=== PATIENT | male | born 1955 | race Caucasian/White ===

== ENCOUNTER → 2017-04-21 | Day surgery (SDC) | payer OTHER ==
[2017-04-13 08:48] VITALS: BMI 32.0
[~2017-04-21] VITALS: Ht 180.3 cm; Wt 104.5 kg
[~2017-04-21] MED LIST: ATROPINE SULFATE 0.1 MG/ML 5ML SYR IV PRN; DEXAMETHASONE SOD INJ 4 MG/ML VIAL ONE; EpHEDrine SULFATE INJ 50 MG/ML AMP IV PRN; FENTANYL CITRATE INJ 50 MCG/1 ML 2 ML VIAL ONE; GLYCOPYRROLATE INJ 0.2 MG/ML VIAL ONE; LIDOCAINE HCL 2% 2 ML VIAL (20MG/ML) ONE; LISI40TA PO; MIDAZOLAM HCL 1 MG/ML 2ML VIAL ONE; NEOSTIGMINE METHYLSULFATE 5 MG/5 ML SYR ONE; ONDANSETRON INJ 2 MG/ML 2 ML VIAL ONE; PROPOFOL IV EMULSION 10 MG/ML 20 ML VIAL IV ONE; SODIUM CHLORIDE 0.9% 500ML 500 ML IV ONE
[2017-04-21 06:42] VITALS: BP 175/85; PULSE 67; TEMP 36.8; O2SAT 96; Ht 180.3 cm; Wt 104.5 kg
--- NOTE | 2017-04-21 08:08 | Endo History and Physical ---
History & Physical Date of Service: Apr 21, 2017. Chief Complaint: colon polyp Referring Physician: History of Present Illness colon polyp for resection Past Surgical History Hx Cardiac Surgery: No Hx Abdominal Surgery: No Hx Post-Op Nausea and Vomiting: No Hx Cancer Surgery: No Hx Thoracic Surgery: No Hx Orthopedic: Yes (RIGHT FINGER ORIF AND HARDWARE REMOVAL) Hx Urinary Tract Surgery: No Social History Smoking Status: Never Smoker Hx Substance Use: No Hx Alcohol Use: Yes (6 to 7 beers a week) Allergies Coded Allergies: No Known Allergies (Unverified , 04/13/17) Current Medications Reported Home Medications Medications Dose Route/Sig Max Daily Dose Days Date Category Zestril (Lisinopril) 40 Mg Tab 20 Mg PO QAM 04/13/17 Reported Vital Signs Weight (Kilograms): 104.55 Height (Feet): 5 Height (Inches): 11 Date Time Temp Pulse Resp B/P (MAP) Pulse Ox O2 Delivery O2 Flow Rate FiO2 04/21/17 06:42 36.8 67 20 175/85 (115) 96 Room Air Physical Exam General Appearance: WD/WN, no apparent distress Respiratory/Chest: Auscultation: breath sounds normal Cardiovascular: Heart Auscultation: RRR Abdomen: Bowel Sounds: normal Inspection & Palpation: soft, non-distended, no tenderness, guarding & rebound Assessment and Plan colonoscopy with polypectomy
[2017-04-21 09:05] VITALS: BP 115/67; PULSE 75; TEMP 36.4; O2SAT 94
--- NOTE | 2017-04-21 09:19 | GI REPORT ---
Procedure Date: 04/21/2017 8:05 AM Procedure: Colonoscopy Indications: Therapeutic procedure for colon polyps Medicines: Propofol per Anesthesia Complications: No immediate complications. Estimated blood loss: Minimal. Estimated Blood Loss: Estimated blood loss was minimal. Procedure: Pre-Anesthesia Assessment: - Prior to the procedure, a History and Physical was performed, and patient medications and allergies were reviewed. The patient's tolerance of previous anesthesia was also reviewed. The risks and benefits of the procedure and the sedation options and risks were discussed with the patient. All questions were answered, and informed consent was obtained. Prior Anticoagulants: The patient has taken no previous anticoagulant or antiplatelet agents. ASA Grade Assessment: III - A patient with severe systemic disease. After reviewing the risks and benefits, the patient was deemed in satisfactory condition to undergo the procedure. After I obtained informed consent, the scope was passed under direct vision. Throughout the procedure, the patient's blood pressure, pulse, and oxygen saturations were monitored continuously. The Scope was introduced through the anus and advanced to the cecum, identified by the appendiceal orifice, ileocecal valve and palpation. The colonoscopy was unusually difficult due to a redundant colon and a tortuous colon. Successful completion of the procedure was aided by changing the patient to a supine position and using manual pressure. The patient tolerated the procedure well. The quality of the bowel preparation was good. Findings: The perianal and digital rectal examinations were normal. Pertinent negatives include normal sphincter tone, no palpable rectal lesions and no anal lesion or abnormality was detected. A 12 mm polyp was found in the cecum. The polyp was semi-pedunculated. The polyp was removed with a hot snare. Resection and retrieval were complete. Estimated blood loss: none. To prevent bleeding after the polypectomy, two hemostatic clips were successfully placed (MR conditional). There was no bleeding during, or at the end, of the procedure. A 2 mm polyp was found in the ileocecal valve. The polyp was sessile. The polyp was removed with a cold biopsy forceps. Resection and retrieval were complete. Estimated blood loss was minimal. Verification of patient identification for the specimen was done by the physician and helpdesk technician using the patient's name and medical record number. The exam was otherwise without abnormality. The retroflexed view of the distal rectum and anal verge was normal and showed no anal or rectal abnormalities. Impression: - One 12 mm polyp in the cecum, removed with a hot snare. Resected and retrieved. Clips (MR conditional) were placed. - One 2 mm polyp at the ileocecal valve, removed with a cold biopsy forceps. Resected and retrieved. - The examination was otherwise normal. - The distal rectum and anal verge are normal on retroflexion view. Recommendation: - Discharge patient to home (ambulatory). - Resume regular diet. - Continue present medications. - Await pathology results. - Repeat colonoscopy for surveillance based on pathology results. - Return to referring physician as previously scheduled. MD Dustin Tripathi MD 04/21/2017 9:18:55 AM This report has been signed electronically. Note Initiated On: 04/21/2017 8:05 AM I attest to the content of the Intraoperative Record and orders documented therein, exceptions below
[2017-04-21 09:35] VITALS: BP 130/78; PULSE 59; O2SAT 96
--- NOTE | 2017-04-21 09:59 | Discharge Instructions ---
Endoscopy Patient Instructions Date / Procedure(s) Performed Apr 21, 2017. Colonoscopy Allergy Information Coded Allergies: No Known Allergies (Unverified , 04/13/17) Discharge Date / Findings Apr 21, 2017. colon polyp removed Medication Instructions Restart Stopped Medication(s): Reported Home Medications Medications Dose Route/Sig Max Daily Dose Days Date Category Zestril (Lisinopril) 40 Mg Tab 20 Mg PO QAM 04/13/17 Reported Reported Home Medications Medications Dose Route/Sig Max Daily Dose Days Date Category Zestril (Lisinopril) 40 Mg Tab 20 Mg PO QAM 04/13/17 Reported Provider Instructions Activity Restrictions - No exercising or heavy lifting for 24 hours. - Do not drink alcohol the day of the procedure. - Do not drive a car or operate machinery until the day after the procedure. - Do not make any important decisions or sign important papers in 24 hours after the procedure. Following Day: - Return to full activity which may include returning to work/school. Diet Start your diet with liquids and light foods (jello, soup, juice, toast). Then eat your usual diet if not nauseated. Treatment For Common After Affects For mild abdominal pain, bloating, or excessive gas: - Rest - Eat lightly - Lie on right side Follow-Up Information Follow-up with as scheduled Anesthesia Information What You Should Know You have had a procedure that required some medicine to reduce anxiety and discomfort. This treatment is called moderate sedation. After receiving the treatment, you may be sleepy, but you will be able to breathe on your own. The effects of the treatment may last for several hours. Follow these instructions along with Activity/Diet recommendations noted above: * Do NOT do anything where dizziness or clumsiness would be dangerous. * Rest quietly at home today, then you can be up and about tomorrow. * Have a responsible person stay with you the rest of today. * You may have had an I.V. today. If so, you may take the dressing off later today. Recommendations Call your doctor if: * Trouble breathing * Continuous vomiting for more than 24 hours * Temperature above 101 degrees * Severe abdominal pain or bloating * Pain not relieved by pain medicine ordered * There is increased drainage or redness from any incision * A large amount of rectal bleeding greater than 2-3 tablespoons. (If you had a polyp/s removed or have hemorrhoids, a small amount of blood - from the rectum is to be expected.) * You have any unanswered questions or concerns. IN THE EVENT OF A SERIOUS EMERGENCY, GO TO THE NEAREST EMERGENCY ROOM Your discharge instructions were prepared by provider Dustin Rodriges. Patient Instructions Signature Page Bart Holman Patient (or Guardian) Signature/Date: I have read and understand the instructions given to me by my caregivers. Caregiver/RN/Doctor Signature/Date: The above-named patient and/or guardian has received patient instructions on this date. + Original Patient Signature Page (only) stays with chart. Please make copy for patient.
--- NOTE | 2017-04-21 11:00 | Anesthesiology Progress Note ---
Anesthesia Post Op Note Date & Time Apr 21, 2017 at 10:59 Vital Signs Pain Intensity: 0 Vital Signs Past 12 Hours Date Time Temp Pulse Resp B/P (MAP) Pulse Ox O2 Delivery O2 Flow Rate FiO2 04/21/17 09:35 59 18 130/78 96 Room Air 04/21/17 09:05 36.4 75 18 115/67 94 Room Air 04/21/17 06:42 36.8 67 20 175/85 (115) 96 Room Air Notes Mental Status: alert / awake / arousable, participated in evaluation Pt Amnestic to Procedure: Yes Nausea / Vomiting: adequately controlled Pain: adequately controlled Airway Patency, RR, SpO2: stable & adequate BP & HR: stable & adequate Hydration State: stable & adequate Anesthetic Complications: no major complications apparent
== END | disposition home or self-care (01) ==
LOC: C.ACU 06:14
PROVIDERS: ATTEND Internal Medicine Gastroenterology
DX: D12.0 Benign neoplasm of cecum (principal); I10 Essential (primary) hypertension; M19.90 Unspecified osteoarthritis, unspecified site; E66.9 Obesity, unspecified; Z68.34 Body mass index [BMI] 34.0-34.9, adult; Z79.899 Other long term (current) drug therapy

== ENCOUNTER 2025-03-03 07:10 | Observation (INO) ==
--- NOTE | 2025-01-30 10:32 | PAT Medication Instructions ---
Medication Instructions Date of Service January 30, 2025 Home Medications Medication Instructions Recorded Auto Titrating CPAP #1 ea 05/15/19 propylene glycol 0.6 % eye drops ([place] Tears) 1 drp ophthalmic (eye) TID PRN clotrimazole-betamethasone 1 %-0.05 % topical cream 1 applic topical .once a day PRN acetaminophen 500 mg tablet 1,000 mg PO Q6H PRN Pain hydrochlorothiazide 12.5 mg tablet 12.5 mg PO QAM lisinopril 40 mg tablet 40 mg PO QAM meloxicam 15 mg tablet 15 mg PO QAM pain ASK your surgeon for instructions meloxicam 15 mg tablet 15 mg PO QAM pain STOP taking 24 hours before surgery clotrimazole-betamethasone 1 %-0.05 % topical cream 1 applic topical .once a day PRN DO NOT take the morning of surgery hydrochlorothiazide 12.5 mg tablet 12.5 mg PO QAM lisinopril 40 mg tablet 40 mg PO QAM Take morning of surgery With a small sip of water, OTHERWISE NOTHING TO EAT OR DRINK AFTER MIDNIGHT: propylene glycol 0.6 % eye drops ([place] Tears) 1 drp ophthalmic (eye) TID PRN (if needed) acetaminophen 500 mg tablet 1,000 mg PO Q6H PRN Pain (if needed) Take evening before surgery propylene glycol 0.6 % eye drops ([place] Tears) 1 drp ophthalmic (eye) TID PRN (if needed) acetaminophen 500 mg tablet 1,000 mg PO Q6H PRN Pain (if needed) Other Notes If you have any questions please call us at [phone] or [phone] or [phone] or [phone]
--- NOTE | 2025-02-10 09:52 | Anesthesiology Consultation ---
Date of Service February 10, 2025 Assessment & Plan (1) Encounter for pre-operative examination: Plan - Outpatient joint assessment: Patient is currently scheduled for inpatient pathway. If re-evaluated and patient/surgeon requests outpatient pathway, patient is acceptable candidate for outpatient joint program from anesthesia standpoint pending surgeon's office assessment of pt motivation/support/completion of same day joint program preop requirements. Chart Review Chart Review: Acceptable Risk for Surgery and Patient seen in Pre Admission Testing Teaching & Discussion Pre-Anesthesia Teaching/Discussion Notes: Instructed NPO after midnight before surgery, except medications with 15 cc of water. Medication instructions provided according to the PAT guidelines. History Surgery Operation Date: 03/03/25 12:00 Proposed Procedures p Robotic Assisted Left Total Knee Arthroplasty - Thiago Masters, Height/Weight Height: 5 ft 10 in Weight: 103.7 kg Allergies Allergy/AdvReac Type Severity Reaction Status Date / Time No Known Allergies Allergy Verified 01/30/25 08:20 Medications Home Medications Medication Instructions Recorded Confirmed Last Taken Auto Titrating CPAP #1 ea 05/15/19 12/23/24 Unknown propylene glycol 0.6 % eye drops 1 drp ophthalmic (eye) TID PRN . 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 Exercise / Class Metabolic Activity II 4-5 Yardwork/Stairs/Walk up hill (denies chest discomfort or shortness of breath with one flight of stairs) Past Family History Family History Father Coronary heart disease s/p CABG. living in his 80s Heart disease Hypertension Sister Anxiety Hypertension Mother TIA (transient ischemic attack) Chronic GERD Hypertension Brother Hypertension Denies family history of Ovarian cancer Prostate cancer Diabetes Myocardial infarction Breast cancer Lung cancer Colorectal cancer Lung disease Cancer Stroke Past Surgical History Surgical History H/O colonoscopy (2022) H/O vasectomy (1981) H/O wisdom tooth extraction History of hand surgery (1981) broke ring finger on right hand Hx of right cataract extraction (2022) Past Anesthesia History No Hx of Anesthesia Complications and No Family Hx of Anesthesia Complications History of PONV No Hx of PONV and No Hx of Motion Sickness Social History Smoking Status: Never smoker tobacco type: smokeless tobacco Do You Dip or Chew Tobacco: Yes (advised) Hx Alcohol Use: Yes Alcohol type: beer alcohol intake frequency: a few times a week Hx Substance Use: No substance use type: does not use Review of Systems Patient denies chest pain, shortness of breath, dyspnea on exertion, reflux, fever, chills, cough, wheezing, or palpitations. Physical Exam Vital Signs Vitals BP 147/91 P 79 TEMP 98.5 SP02 97% on RA RESP 18 Physical Patient resting comfortably in chair in no acute distress, alert and oriented, responding appropriately throughout visit Full cervical extension range of motion without pain TMD 3.5 finger breadths Mallampati Score 2 Dentition: several crowns, denies chipped or loose teeth, caps, implants or bridges Lungs: normal respiratory effort. Good air movement, clear throughout to aus cultation, no adventitious breath sounds Cardiac: regular rate and rhythm, no murmurs noted Carotid arteries: negative bruit bilat Lab Results Anesthesia Preop Results Results Anesthesia Widget: WBC 6.07 K/ul (4.8-10.8) 02/10/25 Hgb 14.3 g/dl (14.0-18.0) 02/10/25 Hct 42.4 % (42.0-52.0) 02/10/25 Plt 232 K/uL (130-400) 02/10/25 Na 137 mmol/L (136-145) 02/10/25 K 4.5 mmol/L (3.5-5.1) 02/10/25 Cl 103 mmol/L (98-107) 02/10/25 CO2 26 mmol/L (21-32) 02/10/25 BUN 28 mg/dl (6-23) H 02/10/25 Creat 0.88 mg/dl (0.6-1.4) 02/10/25 Glucose Level 95 mg/dl (70-99(Fasting)) 02/10/25 PT 10.5 Seconds (9.0-12.0) 02/10/25 PTT 25 Seconds (21-31) 02/10/25 INR 1.0 (0.9-1.1) 02/10/25 Blood Type A Positive 02/10/25 Antibody Screen NEGATIVE 02/10/25 Testing Electrocardiogram Date: 02/10/25 NSR, rate 69 bpm Chest X-Ray Date: 02/10/25 No acute findings. Stress Test Date: 12/06/23 MPHR 91% Negative exercise stress echo and ECG for ischemia EF 50-55% Mild cLVH Borderline dilated LA Mildly dilated RV and RA Mild aortic sclerosis, tri-leaflet
--- NOTE | 2025-02-27 12:21 | History & Physical Report ---
Date of Service February 27, 2025 Assessment & Plan (1) Left knee DJD: We will proceed with a left total knee arthroplasty. Postoperatively, he will be started on aspirin for DVT prophylaxis and kept overnight in the hospital for postop medical comanagement. He plans to use energy physical therapy at [facility]. History of Present Illness Chief Complaint: Osteoarthritis left knee. Primary Care Provider: IVELISSE Bui Bart is pleasant 69-year-old male who has been dealing with chronic increasing left knee pain. He has been treated by another provider. Initial x-rays do not look too bad. He has an MRI of his knee which shows more advanced medial compartmental arthritis. After failing conservative treatment, he has elected proceed with a left total knee arthroplasty. Allergies Allergy/AdvReac Type Severity Reaction Status Date / Time No Known Allergies Allergy Verified 02/17/25 08:12 Home Medications Medication Instructions Recorded Confirmed Type Auto Titrating CPAP #1 ea 05/15/19 02/17/25 Rx propylene glycol 0.6 % eye drops 1 drp ophthalmic (eye) TID PRN . 10/15/24 02/17/25 History ([place] Me[place] Tears) clotrimazole-betamethasone 1 1 applic topical .once a day PRN , 12/23/2402/17 History %-0.05 % topical cream acetaminophen 500 mg tablet 1,000 mg PO Q6H PRN Pain 01/30/25 02/17/25 History lisinopril 40 mg tablet 40 mg PO QAM 01/30/25 02/17/25 History meloxicam 15 mg tablet 15 mg PO QAM pain 01/30/25 02/17/25 History hydrochlorothiazide 12.5 mg tablet 12.5 mg PO QAM #90 tabs 02/13/25 02/17/25 Rx Past Med/Surg History Problem List Encounter for pre-operative examination Left knee DJD Tear of medial meniscus of left knee Effusion, left knee Meibomian gland dysfunction Dry eye Hyperlipidemia Sleep apnea CPAP Obesity (BMI 30-39.9) Smokeless tobacco use (Acute) Prediabetes (Chronic) states recent testing was WNL Nummular eczematous dermatitis Hypertension (Chronic) Medical History Tear of medial meniscus of left knee Meibomian gland dysfunction History of prediabetes HLD (hyperlipidemia) Sleep apnea CPAP-compliant Dry eye Left knee DJD Hypertension controlled, stable per pt 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 living in his 80s Heart disease Hypertension Sister Anxiety Hypertension Mother TIA (transient ischemic attack) Chronic GERD Hypertension Brother Hypertension Denies family history of Ovarian cancer Prostate cancer Diabetes Myocardial infarction Breast cancer Lung cancer Colorectal cancer Lung disease Cancer Stroke Social History Smoking Status: Never smoker Tobacco Type: Smokeless Tobacco (Dip or Chew) Age Started Using Tobacco: 10; Second Hand Exposure: No; Do You Dip or Chew Tobacco: Yes (advised); Tobacco Cessation Education Requested by Patient: No Hx Alcohol Use: Yes Alcohol type: beer Alcohol Intake Frequency: 2-3 x/Week Hx Substance Use: No Preferred Language: [place] Communication Ability: Effective Visual Impairment: Limited Hearing Ability: Normal Quantitative Researcher Required: No Beliefs That Will Affect Care: None marital status: Current Living Situation: Spouse current occupational status: retired current occupation: electronic security specialist How many Children do You have: 2 Other Information That Helps Us Care for You: No other: 1 son, 1 daughter, [employer], Retired Feels Safe at Home: Yes Safety Concerns: Feels Safe At This Time Childhood Exposure to Second-Hand Smoke: No caffeine: Yes Dental Care, Regularly: No Physical Activity Frequency: Does not Exercise Seatbelt Use: always Sunscreen Use: No Assistive Devices: CPAP and Glasses Review of Systems All systems reviewed & are unremarkable except as noted in HPI & below. Physical Exam On physical exam of the left knee, he has pain of the distal medial femoral condyle and over the medial joint line. He is good range of motion. No effusion.. Constitutional WD/WN, vitals as above Eyes PERRL, conjunctivae normal, anicteric sclerae ENMT external ear and nose normal, oropharynx normal Neck trachea midline, no thyromegaly Respiratory normal respiratory effort Cardiovascular RRR, no murmur, no edema Gastrointestinal (Abdomen) normal bowel sounds, soft, nontender, no hepatosplenomegaly Psychiatric A+Ox3, euthymic affect Results & Data Results & Data Laboratory Results . Diagnostic Findings . PG Care Time/CCT Total # of Minutes Spent Total Time Spent with Patient: Total time spent is greater than 50% in coordination of care (as documented) at patient's floor/unit and/or counseling patient: Coding Level of Care Code None Diagnoses Left knee DJD M17.12
[~2025-03-03 07:10] MED LIST changes: -ATROPINE SULFATE 0.1 MG/ML 5ML SYR IV PRN; +BUPIVACAINE 0.25% PF 30 ML VIAL ONE; +BUPIVACAINE 0.5 % 5 MG/1 ML PF 10ML VIAL ONE; +EPINEPHrine INJ 1 MG/ML AMP ONE; -EpHEDrine SULFATE INJ 50 MG/ML AMP IV PRN; -FENTANYL CITRATE INJ 50 MCG/1 ML 2 ML VIAL ONE; -GLYCOPYRROLATE INJ 0.2 MG/ML VIAL ONE; -LIDOCAINE HCL 2% 2 ML VIAL (20MG/ML) ONE; -LISI40TA PO; -MIDAZOLAM HCL 1 MG/ML 2ML VIAL ONE; -NEOSTIGMINE METHYLSULFATE 5 MG/5 ML SYR ONE; -ONDANSETRON INJ 2 MG/ML 2 ML VIAL ONE; -PROPOFOL IV EMULSION 10 MG/ML 20 ML VIAL IV ONE; -SODIUM CHLORIDE 0.9% 500ML 500 ML IV ONE
[2025-03-03] MEDS: ACETAMINOPHEN 500 MG TAB PO SCH ×2 (07:23→14:52)
[2025-03-03] MEDS: dexAMETHasone**PF** 10 MG/ML VIAL IV SCH (07:24)
[2025-03-03] MEDS: FAMOTIDINE 20 MG TAB PO SCH (07:24)
[2025-03-03] MEDS: LR 60ML/HR IV SCH (07:24)
[2025-03-03] MEDS: GABAPENTIN 300 MG CAP PO SCH (07:24)
[2025-03-03] MEDS: LR 500ML BOLUS, THEN 15ML/HR IV SCH (07:45)
[2025-03-03] MEDS ORDERED: ONDANSETRON INJ 2 MG/ML 2 ML VIAL IV PRN ×2 (07:49→11:33)
[2025-03-03] MEDS ORDERED: ATROPINE SULFATE 0.1 MG/ML 10ML SYR IV PRN (07:49)
[2025-03-03] MEDS ORDERED: PROMETHAZINE HCL 6.25 MG in SODIUM CHLORIDE 0.9% 50 ML IV PRN (07:49)
--- NOTE | 2025-03-03 08:00 | History & Physical Bridge Note ---
Date of Service March 03, 2025 History & Physical Bridge Note I have examined the patient, reviewed the History & Physical and in the interval since the performance of the History & Physical I have noted the following changes of clinical significance: no changes noted
[2025-03-03] MEDS ORDERED: ONDANSETRON INJ 2 MG/ML 2 ML VIAL ONE (08:10)
[2025-03-03] MEDS ORDERED: LIDOCAINE 2% 2 ML VIAL/AMP(20MG/ML) INFIL ONE (08:10)
[2025-03-03] MEDS ORDERED: DEXAMETHASONE SOD INJ 4 MG/ML VIAL ONE (08:10)
[2025-03-03] MEDS ORDERED: PROPOFOL IV EMULSION 10 MG/ML 100 ML VIAL IV ONE (08:10)
[2025-03-03] MEDS ORDERED: PROPOFOL IV EMULSION 10 MG/ML 20 ML VIAL IV ONE (08:10)
[2025-03-03] MEDS ORDERED: MIDAZOLAM HCL 1 MG/ML 2ML VIAL ONE ×2 (08:10)
[2025-03-03] MEDS: TRANEXAMIC ACID 1,000 MG **IV Pre-op IV SCH (08:32)
[2025-03-03] MEDS: ROPIV 0.5% 246mg, Ketorolac 30mg, EPINEPHrine 0.5mg in NSS INFIL SCH (09:22)
[2025-03-03] MEDS: ORTHO JOINT ANESTHETIC ONE (09:23)
--- NOTE | 2025-03-03 09:57 | Operative Report ---
PG Post Operative Report Pre & Post Diagnosis Operation Date: 03/03/25 09:00 Pre-Op Diagnosis: Left Knee Degenerative Joint Disease Post-Op Diagnosis: Left Knee Degenerative Joint Disease I identified the patient and participated in the time-out.: Yes Procedure Operation Date: 03/03/25 09:00 Actual Procedures p Robotic Assisted Left Total Knee Arthroplasty(Left) - Thiago Masters DO Surgeon Thiago Masters DO Wringer Machine Operator Serafin Shook PA-C Estimated Blood Loss 30 Findings Consistent with Post-Op Diagnosis Specimens Left femoral and tibial bone Description of Procedure Implants used: I used a [employer] total knee arthroplasty system with a size 11 PS standard femur, F tibia, and a size 10 CPS polyethylene bearing. All components were press-fit into place. Bart arrived [facility] for the above procedure. He was seen in the preoperative holding area and the operative extremity was identified and signed. he was given a preoperative antibiotic, TXA, a spinal anesthetic and an adductor nerve block. He was taken back to the operating room and laid on the table in supine position. He was given basic sedation. The operative knee was then prepped and draped in sterile fashion. A timeout was done, and the patient and the operative extremity was properly identified. A midline incision was made directly over the patella. Dissection was taken down to the extensor mechanism. A medial parapatellar arthrotomy was used. The medial retinaculum was released and the fat pad was mostly excised. The knee was flexed and the ACL, PCL, and meniscus were removed. The alignment of the knee replacement was assisted with a [employer] robotic knee. The femoral array was pinned in the distal femur and the tibial array was pinned using a percutaneous technique in the upper shaft of the tibia. The robot was appropriately calibrated and the structure of the knee was mapped out. The components were then manipulated on the screen to account for any malalignment and to assist in gap balancing. Once I was happy with the placement of the components on the screen, a distal femoral cutting guide was brought in place. The distal femur was then resected. The femur measured to be a size 11. A 4-in-1 cutting block was then put into place by the robot and 2 peg holes were drilled. The 4-in-1 cutting block was then impacted into place and anterior, posterior, and chamfer cuts were made. The cutting block was then brought down to the tibia and pinned into place. The proximal tibia was then resected. The posterior aspect of the knee was then opened up and any additional meniscus fragments and osteophytes were removed. The tibia measured to be a size F. The tibial plate was then placed in the appropriate rotation and the tibia was drilled and punched. Trial components were then placed. A size 10 CPS polyethylene insert was then trialed. The knee was brought through a full range of motion and felt to be stable. Trial components were then removed. The surrounding soft tissues were injected with 100 cc of an orthopedic pain control cocktail. All components were then press-fit into place. The final polyethylene insert was then snapped into place. The tourniquet was deflated. Hemostasis was obtained. Irrisept was then done for 3 minutes. The joint was then irrigated with normal saline solution. The medial parapatellar arthrotomy was then closed with #1 Vicryl suture. The skin was closed with 2-0 Vicryl, 3-0V lock suture, and [place] Zipline. A soft compressive dressing was placed. He was then transferred to a hospital bed and taken to the postanesthesia care unit in stable condition. He tolerated the procedure well. Serafin Shook PA-C, was present for the entire procedure. He was critical for patient positioning, prepping, draping, retraction exposure, wound closure and application of sterile dressing. I attest to the content of the Intraoperative Record and any orders documented therein. Any exceptions are noted below.
--- NOTE | 2025-03-03 10:48 | Anesthesiology Progress Note ---
Date of Service March 03, 2025 Anesthesia Post Procedure Vital Signs Vital Signs: Temp Pulse Pulse Resp BP BP Pulse Ox 03/03/25 10:45 84 18 150/80 H 95 03/03/25 10:35 92 H 20 137/67 98 03/03/25 10:24 36.4 C L 115 H 18 123/54 L 95 03/03/25 07:19 36.7 C 64 20 145/86 H 96 O2 Del Method O2 Flow Rate 03/03/25 10:45 Room Air 03/03/25 10:35 Oxymask 4 03/03/25 10:24 Oxymask 4 03/03/25 07:19 Room Air Transfer of Care Handoff Completed per policy Notes Mental Status: alert / awake / arousable Patient Amnestic to Procedure: Yes Nausea / Vomiting: adequately controlled Pain: adequately controlled Airway Patency, RR, SpO2: stable & adequate BP & HR: stable & adequate Hydration State: stable & adequate Neuraxial Anesthesia: was administered and sensory block is resolving Anesthetic Complications: no major complications apparent and Pt Satisfied with anesthetic care
--- NOTE | 2025-03-03 11:00 | XRay Report ---
XR knee LT 1 or 2V routine CLINICAL HISTORY: Surgical Post Op COMPARISON: 10/31/2024 FINDINGS: Left knee prosthesis shows no hardware complication. There is expected soft tissue gas. IMPRESSION: Unremarkable postoperative exam. ACT 112: Negative or not required by law. Electronically signed by: Jerrell Chambers M.D. 03/03/2025 10:59 AM
[2025-03-03] MEDS ORDERED: MAGNESIUM HYDROXIDE SUSP 30 ML UDC PO PRN (11:33)
[2025-03-03] MEDS ORDERED: METOCLOPRAMIDE HCL INJ 5 MG/ML 2 ML VIAL IV PRN (11:33)
[2025-03-03] MEDS ORDERED: HYDROmorphone INJ 0.5 MG/0.5 ML SYR IV PRN (11:33)
[2025-03-03] MEDS ORDERED: NALOXONE HCL 0.4 MG/1 ML VIAL/CARP IV PRN (11:33)
[2025-03-03] MEDS: KETOROLAC TROMETHAMINE 15 MG/ML VIAL IV SCH (12:42)
[2025-03-03] MEDS: SODIUM CHLORIDE 0.9% 1,000 ML IV SCH (14:52)
[2025-03-03] MEDS: DOCUSATE SODIUM 100 MG CAP PO SCH (21:00)
[2025-03-03] MEDS: SENNA 8.6 MG TAB PO SCH (21:00)
[2025-03-03] MEDS: ASPIRIN 81 MG ECTAB PO SCH (21:01)
[2025-03-04 03:29] VITALS: RESP 16; TEMP 97.7
[2025-03-04 07:26] VITALS: BP 159/71; PULSE 73; O2SAT 97
--- NOTE | 2025-03-04 07:57 | Orthopedic Progress Note ---
Date of Service March 04, 2025 Assessment & Plan (1) Status post left knee replacement: * Continue Current Treatment * Disposition: Home with home PT set-up for tomorrow * Daily treatment: Physical Therapy/ Occupational Therapy per protocol * Weight bearing status: as tolerated * Continue to monitor for ABLA * Pain control * DVT prophylaxis, ASA * Office/hospital f/u 2 weeks for progress check and staple/suture removal * Plan for discharge today pending PT/OT clearance Subjective . Active Problems: S/p left total knee arthroplasty POD 1 69 y/o male s/p left total knee arthroplasty with Dr. Masters. Doing well overall, pain managed and improved function. Denies fever/chills, chest pain/SOB, nausea/vomiting. Otherwise no complaints. Review of Systems All systems reviewed & are unremarkable except as noted in HPI & below. Physical Exam * General: Alert and oriented, no acute distress * Constitutional: well-developed, well-nourished. * Respiratory: Normal respiratory effort, no distress * Gastrointestinal: No tenderness to palpation, no rigidity or guarding. * Skin: No rash or lesion. * Neurologic: Grossly normal * Musculoskeletal: Left knee surgical dressing clean, dry and in place, not removed for exam. Otherwise no obvious deformity or overlying skin changes RLE. Diffuse TTP distal thigh and knee region. Otherwise no specific tenderness of proximal thigh, lower leg, foot/ankle. AROM knee flexion 100 degrees, lacks full extension by about 10 degrees. AROM foot/ankle intact. Sensation intact plantar/dorsal foot. Brisk capillary refill. . Results & Data Results & Data Laboratory Results . Diagnostic Findings Knee X-Ray 03/03/25 10:27 XR knee LT 1 or 2V routine CLINICAL HISTORY: Surgical Post Op COMPARISON: 10/31/2024 FINDINGS: Left knee prosthesis shows no hardware complication. There is expected soft tissue gas. IMPRESSION: Unremarkable postoperative exam. ACT 112: Negative or not required by law. Electronically signed by: Jerrell Chambers M.D. 03/03/2025 10:59 AM . PG Care Time/CCT Total # of Minutes Spent Total Time Spent with Patient: Total time spent is greater than 50% in coordination of care (as documented) at patient's floor/unit and/or counseling patient: Coding Level of Care Code 15766 Post Operative Follow-Up Diagnoses Status post left knee replacement Z96.652
[2025-03-04] MEDS: hydroCHLOROthiazide 25 MG TAB PO SCH (08:19)
[2025-03-04] MEDS: MULTIVITAMIN TAB PO SCH (08:21)
== END 2025-03-04 10:53 | disposition home or self-care (01) ==
LOC: 3E 07:10 → ASU 07:10